=== PATIENT | male | born 1935 | race Caucasian/White ===

== ENCOUNTER 2018-08-26 10:15 | Day surgery (SDC) | payer MEDICARE, OTHER ==
[~2018-08-26 10:15] MED LIST: Acetaminophen TAB* 325 MG PO PRN; Buffered Lidocaine 1% SYRIN* 1 ML/SYRINGE INTRADERM ONE
[2018-08-26] MEDS ORDERED: Midazolam* 1 MG/ML 2 ML VIAL (2 MG) ONE (10:35)
[2018-08-26 12:50] VITALS: BP 125/59
--- NOTE | 2018-08-26 12:52 | OP ---
OPERATIVE NOTE: DATE OF OPERATION: 08/26/18 DATE OF : 37 SURGEON: Rashad Inman M.D. PREOPERATIVE DIAGNOSIS: Cataract, left eye. POSTOPERATIVE DIAGNOSIS: Cataract, left eye. OPERATIVE PROCEDURE: Extracapsular cataract extraction with intraocular lens implant, left eye. DESCRIPTION OF PROCEDURE: The patient was brought to the operating room after being given 1/2% Alcai ne with epinephrine drops in the preoperative area. The eye was prepped and draped in the usual ster ile fashion. Sterile drape and eyelid speculum were placed. Again, topical 1/2% Alcaine with epinep hrine was given. A paracentesis incision was made at the 3 o'clock position with the No.75 blade. Cl ear cornea incision 2.2 x 2.2-mm was created at the 6 o'clock position starting at the anterior limbu s using the 2.2-mm keratome. The anterior chamber was irrigated with 0.4 mL of 1% non-preservative i ntracameral lidocaine and filled with DisCoVisc. A capsulorrhexis was completed using the cystotome and the Utrata forceps. Hydrodissection was performed with balanced salt solution. The lens nucleus was removed with the Phacoemulsification handpiece without incident. Cortex was removed with the irr igation-aspiration handpiece. The capsular bag was re-inflated using DisCoVisc and an SN60WF 22 impl ant was inserted with the shooter. The irrigation-aspiration handpiece was used to remove all residua l DisCoVisc. The eye was refilled with balanced salt solution and the wound checked and found to be watertight. Topical Maxitrol drops were given. [id number]/[facility] #: [id number]
[2018-08-26] MEDS ORDERED: acetaZOLAMIDE TAB* 250 MG ONE (13:55)
[2018-08-26] MEDS ORDERED: Cyclopentolate 1% OPTH.SOL* 2 ML BTL ONE (13:56)
[2018-08-26] MEDS ORDERED: Proparacaine 0.5% OPHTH.SOL* 15 ML BTL ONE (13:56)
[2018-08-26] MEDS ORDERED: Neomycin/Polymy/Dex OPTH.SUSP* MAXITROL 0.1% 5 ML ONE (13:56)
[2018-08-26] MEDS ORDERED: Lidocaine 1%* 5 ML VIAL ONE (13:56)
[2018-08-26] MEDS ORDERED: Povidone Iodine 5% OPTH* 30 ML BTL ONE (13:56)
[2018-08-26] MEDS ORDERED: Lidocaine 2% EPI 1:200000 MPF*10-20 ML VIAL ONE (13:56)
[2018-08-26] MEDS ORDERED: Phenylephrine OPHTH SOL 2.5%* 2 ML ONE (13:56)
[2018-08-26] MEDS ORDERED: Ketorolac 0.5% OPHTH (NF) 0.5 % 5 ML BTL ONE (13:56)
== END 2018-08-26 11:13 | disposition home or self-care (01) ==
LOC: OREAST 10:15
PROVIDERS: ATTEND Specialist
DX: H25.813 Combined forms of age-related cataract, bilateral (principal); H35.3131 Nonexudative age-related macular degeneration, bilateral, early dry stage; H16.223 Keratoconjunctivitis sicca, not specified as Sjogren's, bilateral; H25.23 Age-related cataract, morgagnian type, bilateral; I10 Essential (primary) hypertension; R56.9 Unspecified convulsions; E78.00 Pure hypercholesterolemia, unspecified; Z87.891 Personal history of nicotine dependence
CPT/HCPCS: A9270-GY; J2250; V2632

== ENCOUNTER 2018-09-02 11:19 | Day surgery (SDC) | payer MEDICARE, OTHER ==
[2018-09-02] MEDS ORDERED: Neomycin/Polymy/Dex OPTH.SUSP* MAXITROL 0.1% 5 ML ONE (13:44)
[2018-09-02] MEDS ORDERED: acetaZOLAMIDE TAB* 250 MG ONE (13:44)
[2018-09-02] MEDS ORDERED: Povidone Iodine 5% OPTH* 30 ML BTL ONE (13:44)
[2018-09-02] MEDS ORDERED: Lidocaine 2% EPI 1:200000 MPF*10-20 ML VIAL ONE (13:44)
[2018-09-02] MEDS ORDERED: Proparacaine 0.5% OPHTH.SOL* 15 ML BTL ONE (13:44)
[2018-09-02] MEDS ORDERED: Lidocaine 1%* 5 ML VIAL ONE (13:44)
[2018-09-02] MEDS ORDERED: Cyclopentolate 1% OPTH.SOL* 2 ML BTL ONE (13:44)
[2018-09-02] MEDS ORDERED: Phenylephrine OPHTH SOL 2.5%* 2 ML ONE (13:44)
[2018-09-02] MEDS ORDERED: Ketorolac 0.5% OPHTH (NF) 0.5 % 5 ML BTL ONE (13:44)
[2018-09-02] MEDS ORDERED: Midazolam* 1 MG/ML 2 ML VIAL (2 MG) ONE (14:07)
[2018-09-02 14:58] VITALS: BP 122/57
--- NOTE | 2018-09-02 21:13 | OP ---
DATE OF OPERATION: 09/02/18 - [facility] DATE OF : 37 SURGEON: Rashad Inman M.D. PREOPERATIVE DIAGNOSIS: Cataract, right eye. POSTOPERATIVE DIAGNOSIS: Cataract, right eye. OPERATIVE PROCEDURE: Extracapsular cataract extraction with intraocular lens implant, right eye. DESCRIPTION OF PROCEDURE: The patient was brought to the operating room after being given 1/2% Alcaine with epinephrine drops in the preoperative area. The eye was prepped and draped in the usual sterile fashion. Sterile drape and eyelid speculum were placed. Again, topical 1/2% Alcaine with epinephrine was given. A paracentesis incision was made at the 9 o'clock position with the No.75 blade. Clear cornea incision 2.2 x 2.2-mm was created at the 12 o'clock position starting at the anterior limbus using the 2.2-mm keratome. The anterior chamber was irrigated with 0.4 mL of 1% non-preservative intracameral lidocaine and filled with DisCoVisc. A capsulorrhexis was completed using the cystotome and the Utrata forceps. Hydrodissection was performed with balanced salt solution. The lens nucleus was removed with the Phacoemulsification handpiece without incident. Cortex was removed with the irrigation-aspiration handpiece. The capsular bag was re-inflated using DisCoVisc and an SN60WF 21.5 implant was inserted with the shooter. The irrigation-aspiration handpiece was used to remove all residual DisCoVisc. The eye was refilled with balanced salt solution and the wound checked and found to be watertight. Topical Maxitrol drops were given. [id number]/[facility] #: [id number] MTDD
== END 2018-09-02 14:53 | disposition home or self-care (01) ==
LOC: OREAST 11:19
PROVIDERS: ATTEND Specialist
DX: H25.811 Combined forms of age-related cataract, right eye (principal); H35.3131 Nonexudative age-related macular degeneration, bilateral, early dry stage; H16.223 Keratoconjunctivitis sicca, not specified as Sjogren's, bilateral; Z87.891 Personal history of nicotine dependence; I10 Essential (primary) hypertension; E78.00 Pure hypercholesterolemia, unspecified
CPT/HCPCS: A9270-GY; J2250; V2632